=== PATIENT | male | born 1985 | race Caucasian/White ===

== ENCOUNTER 2021-01-31 19:20 | Emergency (ER) | payer OTHER ==
--- NOTE | 2021-01-31 21:16 | ERPHSYRPT ---
- History of Present Illness Time Seen by Provider: 01/31/21 19:45 Source: patient Exam Limitations: no limitations Patient Subjective Stated Complaint: pt states "Today went to the [facility] for calf pain and had doppler and labs miguel." Triage Nursing Assessment: pt ambulated into the er; pt is axo x4; pt has limp gait; c/o BLE pain; pt states 8/10 to BLE; pt states "I went to [facility] today and was told I had cellulitis."; pt states that the pain has continued to increase; pt states that rt leg is more tender than the left leg; pt states that rt leg is more swollen than left; rt calf measures 45.5 cm and left calf measures 42 cm; pt has tenderness with palpation to BLE; pt has strong pulse to jamir pedal pulses; good cap refill to BLE; vitals wnl Physician History: Patient is a 35-year-old male presents for emergency department for evaluation of progressive worsening of bilateral lower calf pain right greater than left. Pain started yesterday and has gotten progressively worse significantly worsening today. Patient was seen at a [facility] earlier in the day. Patient was worked up including Doppler ultrasound. Doppler was negative for DVT. CPK at that point was negative also. Labs are essentially unremarkable. Patient was diagnosed with possible cellulitis. Patient was discharged with a prescription for Keflex. Patient was advised to come to our ED if symptoms worsen. Patient states his pain is significantly worse. His calf swelling is worsened. Patient is unable to ambulate at this point because of severe pain in his right calf. Patient denies trauma. No external compressive forces. No leg trauma that patient is aware of. At this point the concern is possible compartment syndrome. Patient states is otherwise healthy. He voices no other complaints or concerns at this time. Method of Injury: unknown Occurred: this morning Quality: constant Severity of Pain-Max: moderate Severity of Pain-Current: mild Lower Extremities Pain: leg: bilateral Modifying Factors: Improves With: movement Associated Symptoms: none Allergies/Adverse Reactions: duloxetine HCl [From Cymbalta] Allergy (Verified 01/31/21 19:37) midazolam [From Versed] Allergy (Verified 01/31/21 19:37) pseudoephedrine HCl [From Sudafed] Allergy (Verified 01/31/21 19:37) triprolidine HCl [From Actifed] Allergy (Verified 01/31/21 19:37) vancomycin Allergy (Verified 01/31/21 19:37) Home Medications: Cyclobenzaprine HCl [Flexeril] 10 mg PO Q8H PRN 01/31/21 [History] Oxycodone HCl/Acetaminophen [Oxycodone-Acetaminophen 5-325] 1 each PO Q8H PRN 01/31/21 [History] Hx Tetanus, Diphtheria Vaccination/Date Given: Yes Hx Influenza Vaccination/Date Given: Yes Hx Pneumococcal Vaccination/Date Given: No Travel Risk - International Travel Have you traveled outside of the country in past 3 weeks: No - Coronavirus Screening Are you exhibiting any of the following symptoms?: No Close contact with a COVID-19 positive Pt in past 14-21 Days: No - Vaccine Status Have you recieved a Covid-19 vaccination: No - Review of Systems Constitutional: No Symptoms, No Fever, No Chills Eyes: No Symptoms Ears, Nose, & Throat: No Symptoms Respiratory: No Symptoms, No Cough, No Dyspnea Cardiac: No Symptoms, No Chest Pain, No Edema, No Syncope Abdominal/Gastrointestinal: No Symptoms, No Abdominal Pain, No Nausea, No Vomiting, No Diarrhea Genitourinary Symptoms: No Symptoms, No Dysuria Musculoskeletal: No Symptoms, No Back Pain, No Neck Pain Skin: No Symptoms, No Rash Neurological: No Symptoms, No Dizziness, No Focal Weakness, No Sensory Changes Psychological: No Symptoms Endocrine: No Symptoms Hematologic/Lymphatic: No Symptoms Immunological/Allergic: No Symptoms All Other Systems: Reviewed and Negative - Past Medical History Pertinent Past Medical History: Yes Respiratory History: Pulmonary Embolism Musculoskeletal History: Osteoarthritis Other Medical History: KIMBOX DISEASE, chronic back pain - Past Surgical History Past Surgical History: Yes Gastrointestinal: Appendectomy, Cholecystectomy Other Surgical History: radius SHORTENEd - Social History Smoking Status: Current every day smoker How long have you smoked: 19 Exposure to second hand smoke: No Drug Use: none Patient Lives Alone: No - Nursing Vital Signs Nursing Vital Signs: Initial Vital Signs Temperature 98.8 F 01/31/21 19:40 Pulse Rate 76 01/31/21 19:40 Respiratory Rate 18 01/31/21 19:40 Blood Pressure 120/69 01/31/21 19:40 O2 Sat by Pulse Oximetry 96 01/31/21 19:40 Pain Scale Pain Intensity 8 - Physical Exam General Appearance: alert Eyes, Ears, Nose, Throat Exam: moist mucous membranes Neck Exam: non-tender, supple Cardiovascular/Respiratory Exam: chest non-tender, normal breath sounds, regular rate/rhythm, no respiratory distress Gastrointestinal/Abdominal Exam: non-tender, guarding Back Exam: normal inspection, No vertebral tenderness Hips Exam: bilateral: non-tender, normal inspection, normal range of motion, no evidence of injury Legs Exam: bilateral leg: non-tender, normal inspection, normal range of motion, no evidence of injury Knees Exam: bilateral knee: non-tender, normal inspection, normal range of motion, no evidence of injury Ankle Exam: bilateral ankle: non-tender, normal inspection, normal range of motion, no evidence of injury Foot Exam: bilateral foot: non-tender, normal inspection, normal range of motion, no evidence of injury Neuro/Tendon Exam: normal sensation, normal motor functions Mental Status Exam: alert, oriented x 3, cooperative Skin Exam: normal color, warm, dry SpO2 Interpretation: normal SpO2: 98 O2 Delivery: Room Air - Course Nursing assessment & vital signs reviewed: Yes - Progress Progress: improved Progress Note: Patient is experiencing pain out of proportion particularly at his right calf. Ultrasound negative for DVT. Labs obtained were essentially nonremarkable. The concern at this point is for possible compartment syndrome. We do not have a [place] needle to rule out compartment syndrome. Patient will be transferred to [facility] for orthopedic evaluation and rule out compartment syndrome. Plan of care discussed with patient and his mother. They both agree to transfer to [facility] for further evaluation. They voiced no other complaints or concerns at this time. Patient declined pain medication. 01/31/21 21:22 Counseled pt/family regarding: diagnosis - Departure Departure Disposition: Transfer Clinical Impression: Bilateral calf pain, Compartment syndrome Condition: Stable Critical Care Time: No Referrals: DOCTOR,NO FAMILY [Primary Care Provider] -
[2021-01-31 21:55] VITALS: BP 100/55; PULSE 60; O2SAT 99
== END 2021-01-31 21:55 | disposition short-term general hospital (02) ==
LOC: ED 19:20
DX: M79.662 Pain in left lower leg (principal); M79.661 Pain in right lower leg; T79.A0XA Compartment syndrome, unspecified, initial encounter; M79.89 Other specified soft tissue disorders
CPT/HCPCS: 99284